=== PATIENT | female | born 1955 | race Caucasian/White ===

== ENCOUNTER → 2018-04-15 | Outpatient (CLI) | payer OTHER | LOC: BMCIMAGING 14:00 | PROVIDERS: ATTEND Internal Medicine | DX: I82.811 Embolism and thrombosis of superficial veins of right lower extremity (principal) ==

== ENCOUNTER 2018-08-27 15:28 | Emergency (ER) | payer OTHER ==
--- NOTE | 2018-08-27 15:41 | EDPHY ---
H & P Stated Complaint: CP MID STERNAL LAST NIGHT NOW RESOLVED Time Seen by Provider: 08/27/18 15:41 - Personal History Current Tetanus Diphtheria and Acellular Pertussis (TDAP): Unsure - Medical/Surgical History Hx Asthma: No Hx Chronic Respiratory Disease: No Hx Diabetes: No Hx Cardiac Disease: No Hx Renal Disease: No Hx Cirrhosis: No Hx Alcoholism: No Hx HIV/AIDS: No Hx Splenectomy or Spleen Trauma: No Other PMH: R DVT - Social History Smoking Status: Never smoked Constitutional: Initial Vital Signs Temperature (C) 36.8 C 08/27/18 15:31 Heart Rate 79 08/27/18 15:31 Respiratory Rate 18 08/27/18 15:31 Blood Pressure 112/72 08/27/18 15:31 O2 Sat (%) 97 08/27/18 15:31 O2 Delivery Mode Room Air Allergies/Adverse Reactions: Sulfa (Sulfonamide Antibiotics) Allergy (Verified 08/27/18 15:30) Home Medications: Medication Instructions Recorded Vitamins And Supplements 08/27/18 Medical Decision Making - Diagnostics Imaging: Discussed imaging studies w/ call manager Radiologist, I viewed and interpreted images myself ED Course/Re-evaluation: CHIEF COMPLAINT: Chest pain HISTORY OF PRESENT ILLNESS: The patient is a 62 y/o female with a history of a right DVT complaining of a brief episode of chest pain. On 07/26/18, the patient finished a 6 month course of Eliquis for the DVT. On 07/27/18, she had a nuclear stress test which revealed an increased pressure on the right side of the heart. She recently returned home from travelling and had a brief episode of chest pain. Due to the chest pain and stress test findings she had labs which revealed a negative d- dimer. Due to these findings she was advised to present to the emergency department for a chest CT. No fever, headache, body aches, lightheadedness, heart palpitations, shortness of breath, cough, abdominal pain, urinary or bowel complaints, numbness, paresthesias. REVIEW OF SYSTEMS: A comprehensive 10 system review of systems is otherwise negative aside from elements mentioned in the history of present illness and medical decision making. PHYSICAL EXAM: HR, BP, O2 Sat, RR. Temp noted General Appearance: Alert, well hydrated, appropriate, and non-toxic appearing. Head: Atraumatic without scalp tenderness or obvious injury Eyes: Pupils equal, round, reactive to light and accommodation, EOMI, no trauma , no injection. Ears: Clear bilaterally, no perforation, normal landmarks Nose: Atraumatic, no rhinorrhea, clear. Throat: There is no erythema or exudates, no lesions, normal tonsils, mucus membranes moist. Neck: Supple, 2+ carotid upstroke, nontender, no lymphadenopathy. Respiratory: No retractions, no distress, no wheezes, and no accessory muscle use. Lungs are clear to auscultation bilaterally. Cardiovascular: Regular rate and rhythm, no murmurs, rubs, or gallops. Bilateral carotid, radial, dorsalis pedis, and posterior tibial pulses intact. Good capillary refill all extremities. Gastrointestinal: Abdomen is soft, nontender, non-distended, no masses, no rebound, no guarding, no peritoneal signs. Musculoskeletal: Normal active ROM of all extremities, atraumatic. Neurological: Alert, appropriate, and interactive. The patient has normal DTRs and non-focal cranial nerves, motor, sensory, and cerebellar exam. Skin: No rashes, good turgor, no nodules on palpation. Past medical history: DVT Past surgical history: Denies Family history: Denies Social history: Lives in [place], single, not employed DIAGNOSTICS/PROCEDURES/CRITICAL CARE TIME: EKG: The 12 lead EKG was interpreted by myself as sinus rhythm with a rate of 78. See hard copy and/or "tracemaster" electronic copy for interpretation. Chest CTA: No PE or acute process. DIFFERENTIAL DIAGNOSIS: The differential diagnosis for the patient's chest pain included but was not limited to myocardial ischemia, pulmonary embolus, chest wall pain, pleural inflammation, and pulmonary infectious causes. MEDICAL DECISION MAKING: The patient is a 62 y/o female with a history of a right DVT complaining of a brief episode of chest pain. On 07/26/18, the patient finished a 6 month course of Eliquis for the DVT. On 07/27/18, she had a nuclear stress test which revealed an increased pressure on the right side of the heart. After having a brief episode of chest pain and the stress test findings she had labs which revealed a negative d-dimer. Due to these findings she was advised to present to the emergency department for a chest CTA. She has a normal physical exam. Labs, EKG and chest CTA ordered. 1545: I reviewed patient's EKG as sinus rhythm with a rate of 78. Labs still pending. 1614: Patient's D-dimer is elevated at 0.84; Chest CTA still pending. 1713: I spoke with Dr. Lara, radiologist, regarding patient's Chest CTA. There is no sign of a PE or other acute process. Patient's troponin is also negative. 1719: Reassessed patient and discussed laboratory and imaging findings. I have advised her to follow up with a auto body repairer. Return precautions provided; patient is comfortable with this plan. - Data Points Laboratory Results: Laboratory Results 08/27/18 15:50 08/27/18 15:50 08/27/18 08/27/18 08/27/18 16:04 15:53 15:52 WBC RBC Hgb POC Hgb 15.3 gm/dL gm/dL (12.6-16.3) Hct POC Hct 45 % % (38-47) MCV MCH MCHC RDW Plt Count MPV Neut % (Auto) Lymph % (Auto) [facility] % (Auto) Eos % (Auto) Baso % (Auto) Nucleat RBC Rel Count Absolute Neuts (auto) Absolute Lymphs (auto) Absolute Monos (auto) Absolute Eos (auto) Absolute Basos (auto) Absolute Nucleated RBC Immature Gran % Immature Gran # D-Dimer POC Sodium 141 mEq/L mEq/L (135-145) Sodium POC Potassium 3.9 mEq/L mEq/L (3.3-5.0) Potassium POC Chloride 102 mEq/L mEq/L (97-110) Chloride Carbon Dioxide POC Total CO2 29 mEq/L mEq/L (22-31) Anion Gap POC BUN 22 mg/dL mg/dL (7-23) BUN Creatinine POC Creatinine 0.9 mg/dL mg/dL (0.6-1.0) Estimated GFR Glucose POC Glucose 88 mg/dL mg/dL (70-100) Calcium POC Troponin I 0.01 ng/mL ng/mL TNP (0.00-0.08) 08/27/18 08/27/18 08/27/18 15:50 15:50 15:50 WBC 6.95 10^3/uL 10^3/uL (3.80-9.50) RBC 4.64 10^6/uL 10^6/uL (4.18-5.33) Hgb 14.9 g/dL g/dL (12.6-16.3) POC Hgb Hct 44.5 % % (38.0-47.0) POC Hct MCV 95.9 fL fL (81.5-99.8) MCH 32.1 pg pg (27.9-34.1) MCHC 33.5 g/dL g/dL (32.4-36.7) RDW 12.1 % % (11.5-15.2) Plt Count 280 10^3/uL 10^3/uL (150-400) MPV 9.9 fL fL (8.7-11.7) Neut % (Auto) 47.5 % % (39.3-74.2) Lymph % (Auto) 38.0 % % (15.0-45.0) [facility] % (Auto) 6.0 % % (4.5-13.0) Eos % (Auto) 7.5 % % (0.6-7.6) Baso % (Auto) 0.7 % % (0.3-1.7) Nucleat RBC Rel Count 0.0 % % (0.0-0.2) Absolute Neuts (auto) 3.30 10^3/uL 10^3/uL (1.70-6.50) Absolute Lymphs (auto) 2.64 10^3/uL 10^3/uL (1.00-3.00) Absolute Monos (auto) 0.42 10^3/uL 10^3/uL (0.30-0.80) Absolute Eos (auto) 0.52 10^3/uL H 10^3/uL (0.03-0.40) Absolute Basos (auto) 0.05 10^3/uL 10^3/uL (0.02-0.10) Absolute Nucleated RBC 0.00 10^3/uL 10^3/uL (0-0.01) Immature Gran % 0.3 % % (0.0-1.1) Immature Gran # 0.02 10^3/uL 10^3/uL (0.00-0.10) D-Dimer 0.84 ug/mLFEU H ug/mLFEU (0.00-0.50) POC Sodium Sodium 138 mEq/L mEq/L (135-145) POC Potassium Potassium 4.1 mEq/L mEq/L (3.5-5.2) POC Chloride Chloride 101 mEq/L mEq/L (97-110) Carbon Dioxide 30 mEq/l mEq/l (22-31) POC Total CO2 Anion Gap 7 mEq/L mEq/L (6-14) POC BUN BUN 22 mg/dL mg/dL (7-23) Creatinine 0.8 mg/dL mg/dL (0.6-1.0) POC Creatinine Estimated GFR > 60 Glucose 86 mg/dL mg/dL (70-100) POC Glucose Calcium 9.4 mg/dL mg/dL (8.5-10.4) POC Troponin I Point of Care Test Results: Chemistry 08/27/18 08/27/18 08/27/18 16:04 15:53 15:52 POC Sodium 141 mEq/L mEq/L (135-145) POC Potassium 3.9 mEq/L mEq/L (3.3-5.0) POC Chloride 102 mEq/L mEq/L (97-110) POC Total CO2 29 mEq/L mEq/L (22-31) POC BUN 22 mg/dL mg/dL (7-23) POC Creatinine 0.9 mg/dL mg/dL (0.6-1.0) POC Glucose 88 mg/dL mg/dL (70-100) POC Troponin I 0.01 ng/mL ng/mL TNP (0.00-0.08) ISTAT H&H 08/27/18 15:53 POC Hgb 15.3 gm/dL gm/dL (12.6-16.3) POC Hct 45 % % (38-47) Departure - Departure Disposition: Home, Routine, Self-Care Clinical Impression: Chest pain Qualifiers: Chest pain type: other chest pain Qualified Code(s): R07.89 - Other chest pain Condition: Good Instructions: Chest Pain (ED) Additional Instructions: 1. Follow-up with your primary doctor within 72 hours. 2. Return to the Emergency Department for fever, chest pain, shortness of breath , increasing pain or other worsening of condition. 3. Follow up with a auto body repairer for further testing, as soon as possible, within one week. 4. As we discussed, it is impossible to fully rule out heart disease as the cause of your chest pain in the emergency department. We would be happy to reevaluate you and observe you in the hospital at any time. Referrals: Lanie Jain MD [Primary Care Provider] - As per Instructions Jose Arroyo MD [Medical Doctor] - As per Instructions Report Scribed for: Dionte Figueroa Report Scribed by: Filomena Adams Date of Report: 08/27/18 Time of Report: 15:42
[2018-08-27] MEDS ORDERED: IOPAMIDOL (ISOVUE 370) 100 ML BTL IV ONE (16:23)
[2018-08-27 16:27] LABS: PLATELET COUNT 280 10^3/uL (150-400)
[2018-08-27 16:47] VITALS: BP 107/70
--- NOTE | 2018-08-27 20:02 | CPEKG ---
Test Reason : OPEN Blood Pressure : / mmHG Vent. Rate : 078 BPM Atrial Rate : 078 BPM P-R Int : 149 ms QRS Dur : 085 ms QT Int : 388 ms P-R-T Axes : 078 064 067 degrees QTc Int : 442 ms Sinus rhythm Probable left atrial enlargement ST elevation, consider inferior injury Confirmed by Dionte Figueroa ([id number]) on 08/27/2018 8:02:22 PM Referred By: Dionte Figueroa Confirmed By:Dionte Figueroa
== END 2018-08-27 17:39 | disposition home or self-care (01) ==
DX: R07.89 Other chest pain (principal); Z86.718 Personal history of other venous thrombosis and embolism
CPT/HCPCS: 71275; 93005; 99285; Q9967; 82435-PO; 82565-PO; 82947-PO; 84132-PO; 84295-PO; 84484-ER; 84520-PO; 85014-ER